=== PATIENT | female | born 2000 | race Caucasian/White ===

== ENCOUNTER 2021-11-02 10:43 | Outpatient (CLI) | payer OTHER, SELFPAY ==
[2021-11-02 21:30] LABS: Albumin* 4.1 g/dL (3.3-5.0)
[2021-11-02 21:33] LABS: Alanine Aminotransferase* 34 U/L (4-35); Alkaline Phosphatase* 80 U/L (40-150); Aspartate Amino Transferase* 28 U/L (12-35); Bilirubin Direct* 0.2 mg/dL (0.0-0.5); Bilirubin Total* 0.2 mg/dL (0.1-1.5); Total Protein* 7.4 g/dL (6.0-8.3)
== END 2021-11-02 10:44 | disposition home or self-care (01) ==
LOC: LKVREF 10:44
PROVIDERS: Visit Provider Family Medicine
DX: B35.1 Tinea unguium (principal)
CPT/HCPCS: 80076

== ENCOUNTER 2022-04-05 15:07 | Outpatient (CLI) | payer OTHER, SELFPAY ==
[2022-04-05 16:29] LABS: Albumin* 4.2 g/dL (3.3-5.0)
[2022-04-05 16:32] LABS: Alkaline Phosphatase* 97 U/L (40-150); Aspartate Amino Transferase* 21 U/L (12-35); Bilirubin Direct* 0.2 mg/dL (0.0-0.5); Bilirubin Total* 0.2 mg/dL (0.1-1.5); Total Protein* 7.1 g/dL (6.0-8.3)
[2022-04-05 16:33] LABS: Alanine Aminotransferase* 27 U/L (4-35)
== END 2022-04-05 15:08 | disposition home or self-care (01) ==
PROVIDERS: Visit Provider Family Medicine
DX: B35.1 Tinea unguium (principal)
CPT/HCPCS: 80076